=== PATIENT | male | born 1975 | race Caucasian/White ===

== ENCOUNTER 2019-02-04 22:33 | Observation (INO) ==
[2019-02-04] MEDS ORDERED: Ondansetron 4 MG/2 ML VIAL IVP ONE (23:15)
[2019-02-04] MEDS ORDERED: 0.9 % Sodium Chloride 1,000 ML IVC ONE (23:22)
--- NOTE | 2019-02-04 23:31 | Emergency Department Note ---
Disposition Clinical Impression: Abscess of skin or subcutaneous tissue Qualifiers: Site of cutaneous abscess: extremity Site of cutaneous abscess of extremity: hand Laterality: left Qualified Code(s): L02.512 - Cutaneous abscess of left hand Disposition: Still a Patient Condition: Good Referrals: NONE,PCP [Primary Care Provider] - Forms: ED Satisfaction Letter Time of Disposition: 01:11 Skin/Abscess/FB HPI Chief complaint: ED Skin/Abscess/Foreign Body Stated complaint: Abscess left hand Time Seen by Provider: 02/04/19 22:47 Source: patient, police Limitations: no limitations Nursing Notes Reviewed: Yes Vital Signs Reviewed: Yes HPI Narrative: 43 yo man brought to ED 02/04/19 for evaluation of abscess on dorsal aspect of left hand with nausea and vomiting x1 day. He said he feels feverish. Patient said he cut his right reddy on a metal saw 1 month ago, and then the abscess on his hand just went "poof" today. He denies CP, SOB, AMS, numbness, weakness, LOC. He said he is unable to eat or drink since this morning. Patient has been in custody at [facility] since 01/29/19 and denies substance abuse; however he was found with 3 needles in his possession upon arrest. Allergies Allergy/AdvReac Type Severity Reaction Status Date / Time codeine Allergy Hives Verified 02/04/19 23:18 Penicillins Allergy Hives Verified 02/04/19 23:18 All systems ED: reviewed and negative except as stated. Constitutional: Reports: fever Gastrointestinal: Reports: nausea, vomiting Integumentary: Reports: lesions Past Medical History - Past Medical History Attestation: Yes The following information was validated with the patient. Source: patient Medical history: Reports: non-contributory Psychiatric history: Reports: no psych history - Social History Smoking Status: Current every day smoker Smokeless Tobacco Status: No Alcohol use: Reports: occasionally Drug use: Reports: marijuana, IV Drug Use Physical Exam Gen: AOx3, appears ill HEENT: No lymphadenopathy, no erythema, no edema. Pupils equal and reactive. Poor dentition. Cardio: Regular rate and rhythm, no murmur, no peripheral edema, good perfusion to all extremities, no cyanosis Resp: Equal breath sounds bilaterally, no wheeze, no cough GI: +vomiting. Abdomen soft, nondistended, nontender to palpation. No ecchymose s, no rash. : No suprapubic tenderness or distention MSK: Two circular lesions with surrounding erythema, serous discharge tender to palpation on right reddy. Abscess with purulent exudate, erythema and edema on dorsum of left hand. No neurovascular compromise on exam. Otherwise normal ROM, no joint swelling or erythema Neuro: CNI-XII intact, strength and sensation WNL Psych: Agitated - General Limitations: no limitations General appearance: alert, in no apparent distress Course Course Narrative: VS stable. Pulse 95, afebrile on presentation. XR ordered to evaluate for foreign body within hand abscess; also CT hand w/ contrast. CBC, CMP, lactic acid, blood cultures ordered. Patient given Zofran, IVF. Started on antibiotics to cover MRSA, anaerobes, G+ and G- given extent of illness (vanc, clindamycin, metronidazole chosen due to penicillin allergy.) Vital Signs Temperature 98.6 F 02/04/19 22:34 Pulse Rate 95 02/04/19 22:34 Respiratory Rate 20 02/04/19 22:34 Blood Pressure 134/87 02/04/19 22:34 O2 Sat by Pulse Oximetry 100 02/04/19 22:34 Temperature 98.6 F 02/04/19 22:34 Pulse Rate 83 02/05/19 00:47 Respiratory Rate 18 02/05/19 00:47 Blood Pressure 117/77 02/05/19 00:47 O2 Sat by Pulse Oximetry 99 02/05/19 00:47 Oxygen Delivery Oxygen Delivery Room Air Skin/Abscess/Foreign Body - [facility] Narrative Medical decision making narrative: VS stable. Patient became diaphoretic during time in ED, appeared more ill. Plan to admit for medical management of abscess, cellulitis. CT hand pending at sign out. - Differential Diagnosis Likely: abscess of skin or subcutaneous tissue - Lab Data Result diagrams: 02/04/19 23:33 02/04/19 23:33 Lab Results 02/04/19 02/04/19 02/04/19 Range/Units 23:33 23:33 23:33 WBC 11.8 H (4.3-11.1) K/mcL RBC 5.15 (4.19-5.50) M/mcL Hgb 14.7 (12.9-16.9) g/dL Hct 42.6 (37.5-50.1) % MCV 82.7 L (83.0-100.0) fL MCH 28.5 (28.0-33.3) pg MCHC 34.5 (31.6-35.5) g/dL RDW 12.6 (11.5-14.5) % Plt Count 244 (140-400) K/mcL MPV 11.0 (9.4-12.4) fL Immature Gran % 0.3 (0-4) % Seg Neutrophils % 37.4 % Lymphocytes % 43.2 % Monocytes % 8.8 % Eosinophils % 9.7 % Basophils % 0.6 % Neutrophils # 4.4 (1.6-8.9) K/mcL Lymphocytes # 5.1 H (0.6-4.6) K/mcL Monocytes # 1.0 (0.0-1.3) K/mcL Eosinophils # 1.1 H (0.0-0.6) K/mcL Basophils # 0.1 (0.0-0.2) K/mcL Sodium 132 L (136-145) mEq/L Potassium 3.8 (3.5-5.1) mEq/L Chloride 101 (98-107) mEq/L Carbon Dioxide 24 (23-29) mEq/L BUN 21 H (6-20) mg/dL Creatinine 0.91 (0.70-1.30) mg/dL Est GFR ( Amer) > 60 (> 60) Est GFR (Non-Af Amer) > 60 (> 60) BUN/Creatinine Ratio 23 (6-26) Glucose 145 H (70-105) mg/dL Calculated Osmolality 280 (280-300) Lactic Acid 1.8 (0.5-2.2) mmol/L Calcium 8.7 (8.6-10.3) mg/dL Total Bilirubin 0.5 (0.3-1.0) mg/dL AST 28 (13-39) Units/L ALT 50 (7-52) Units/L Alkaline Phosphatase 75 (34-104) Units/L Serum Total Protein 7.2 (6.4-8.9) g/dL Albumin 3.9 (3.5-5.7) g/dL Globulin 3.3 (2.4-3.5) g/dL Albumin/Globulin Ratio 1.2 (1.1-2.2)
[2019-02-04] MEDS ORDERED: Vancomycin (wt based) 1,000 MG VIAL IV ONE (23:44)
[2019-02-04] MEDS ORDERED: Clindamycin 600 MG/50 ML 600 MG/50 ML IV.SOLN IVPB STA (23:45)
[2019-02-04] MEDS ORDERED: Isovue-370 500 ML BOTTLE IVP ONE (23:49)
[2019-02-04] MEDS ORDERED: MetroNIDAZOLE 500 MG/100 ML 500 MG/100 ML BAG IVPB ONE (23:52)
[2019-02-05 00:05] LABS: Alanine Aminotransferase 50 Units/L (7-52); Albumin 3.9 g/dL (3.5-5.7); Albumin/Globulin Ratio 1.2 (1.1-2.2); Alkaline Phosphatase 75 Units/L (34-104); Aspartate Amino Transferase 28 Units/L (13-39); BUN/Creatinine Ratio 23 (6-26); Bilirubin,Total 0.5 mg/dL (0.3-1.0); Blood Urea Nitrogen 21 mg/dL (6-20); Calcium 8.7 mg/dL (8.6-10.3); Carbon Dioxide 24 mEq/L (23-29); Chloride 101 mEq/L (98-107); Globulin 3.3 g/dL (2.4-3.5); Glucose 145 mg/dL (70-105); Osmolality,Calculated 280 (280-300); Potassium 3.8 mEq/L (3.5-5.1); Sodium 132 mEq/L (136-145); Total Protein 7.2 g/dL (6.4-8.9); eGFR For African Americans > 60 (> 60); eGFR For Non-African Americans > 60 (> 60)
[2019-02-05 00:35] LABS: Basophils # 0.1 K/mcL (0.0-0.2); Basophils % 0.6 %; Eosinophils # 1.1 K/mcL (0.0-0.6); Eosinophils % 9.7 %; Hematocrit 42.6 % (37.5-50.1); Hemoglobin 14.7 g/dL (12.9-16.9); Immature Granulocytes % 0.3 % (0-4); Lymphocytes # 5.1 K/mcL (0.6-4.6); Lymphocytes % 43.2 %; Mean Corpuscular HGB Conc 34.5 g/dL (31.6-35.5); Mean Corpuscular Hemoglobin 28.5 pg (28.0-33.3); Mean Corpuscular Volume 82.7 fL (83.0-100.0); Monocytes % 8.8 %; Neutrophils # 4.4 K/mcL (1.6-8.9); Platelet Count 244 K/mcL (140-400); Red Blood Count 5.15 M/mcL (4.19-5.50); Red Cell Distribution Width 12.6 % (11.5-14.5); Segmented Neutrophils % 37.4 %; White Blood Count 11.8 K/mcL (4.3-11.1)
--- NOTE | 2019-02-05 00:37 | Emergency Department Note ---
Disposition Clinical Impression: Abscess of skin or subcutaneous tissue Qualifiers: Site of cutaneous abscess: extremity Site of cutaneous abscess of extremity: hand Laterality: left Qualified Code(s): L02.512 - Cutaneous abscess of left hand Cellulitis Qualifiers: Site of cellulitis: extremity Site of cellulitis of extremity: upper extremity Laterality: left Qualified Code(s): L03.114 - Cellulitis of left upper limb Disposition: Admitted As Inpatient Condition: Good Time of Disposition: 01:11 General Adult HPI - General Chief complaint: ED Skin/Abscess/Foreign Body Stated complaint: Abscess left hand Time Seen by Provider: 02/04/19 22:47 Source: patient, police Limitations: no limitations - History of Present Illness Pain Scale: 10 - Related Data Previous Rx's Medication Instructions Recorded Acetaminophen [Tylenol] 650 mg PO Q4HR PRN #30 tablet 02/06/19 Doxycycline 100 mg PO BID #14 capsule 02/06/19 Tramadol HCl [Ultram] 50 mg PO TID PRN 5 Days #15 tab 02/06/19 Allergies Allergy/AdvReac Type Severity Reaction Status Date / Time codeine Allergy Hives Verified 02/04/19 23:18 Penicillins Allergy Hives Verified 02/04/19 23:18 Constitutional: Reports: fever Gastrointestinal: Reports: nausea, vomiting Integumentary: Reports: lesions Past Medical History - Past Medical History Medical history: Reports: non-contributory Psychiatric history: Reports: no psych history - Social History Smoking Status: Current every day smoker Smokeless Tobacco Status: No Alcohol use: Reports: occasionally Drug use: Reports: marijuana, IV Drug Use Physical Exam - General Limitations: no limitations General appearance: alert, in no apparent distress Course Vital Signs Temperature 98.6 F 02/04/19 22:34 Pulse Rate 95 02/04/19 22:34 Respiratory Rate 20 02/04/19 22:34 Blood Pressure 134/87 02/04/19 22:34 O2 Sat by Pulse Oximetry 100 02/04/19 22:34 Temperature 98.4 F 02/06/19 11:33 Pulse Rate 67 02/06/19 11:33 Respiratory Rate 19 02/06/19 11:33 Blood Pressure 115/77 02/06/19 11:33 O2 Sat by Pulse Oximetry 97 02/06/19 11:33 Oxygen Delivery Oxygen Delivery Room Air Medical Decision Making - Lab Data Result diagrams: 02/06/19 04:54 02/06/19 04:54 Lab Results 02/04/19 02/04/19 02/04/19 Range/Units 23:33 23:33 23:33 WBC 11.8 H (4.3-11.1) K/mcL RBC 5.15 (4.19-5.50) M/mcL Hgb 14.7 (12.9-16.9) g/dL Hct 42.6 (37.5-50.1) % MCV 82.7 L (83.0-100.0) fL MCH 28.5 (28.0-33.3) pg MCHC 34.5 (31.6-35.5) g/dL RDW 12.6 (11.5-14.5) % Plt Count 244 (140-400) K/mcL MPV 11.0 (9.4-12.4) fL Immature Gran % 0.3 (0-4) % Seg Neutrophils % 37.4 % Lymphocytes % 43.2 % Monocytes % 8.8 % Eosinophils % 9.7 % Basophils % 0.6 % Neutrophils # 4.4 (1.6-8.9) K/mcL Lymphocytes # 5.1 H (0.6-4.6) K/mcL Monocytes # 1.0 (0.0-1.3) K/mcL Eosinophils # 1.1 H (0.0-0.6) K/mcL Basophils # 0.1 (0.0-0.2) K/mcL Sodium 132 L (136-145) mEq/L Potassium 3.8 (3.5-5.1) mEq/L Chloride 101 (98-107) mEq/L Carbon Dioxide 24 (23-29) mEq/L BUN 21 H (6-20) mg/dL Creatinine 0.91 (0.70-1.30) mg/dL Est GFR ( Amer) > 60 (> 60) Est GFR (Non-Af Amer) > 60 (> 60) BUN/Creatinine Ratio 23 (6-26) Glucose 145 H (70-105) mg/dL Calculated Osmolality 280 (280-300) Lactic Acid 1.8 (0.5-2.2) mmol/L Calcium 8.7 (8.6-10.3) mg/dL Total Bilirubin 0.5 (0.3-1.0) mg/dL AST 28 (13-39) Units/L ALT 50 (7-52) Units/L Alkaline Phosphatase 75 (34-104) Units/L Serum Total Protein 7.2 (6.4-8.9) g/dL Albumin 3.9 (3.5-5.7) g/dL Globulin 3.3 (2.4-3.5) g/dL Albumin/Globulin Ratio 1.2 (1.1-2.2) Attestation Statement - Attestation Attestation: I examined this patient and my medical decision-making was reviewed with the Resident Physician. I agree with the documented findings, disposition and treatment plan as described except to the extent set forth below. Patient a 43-year-old gentleman presents to the emergency department with chief complaint of abscess to left hand Physical exam patient is diaphoretic has a draining abscess to the dorsal aspect of the left forearm the patient has a ulceration on his right lower extremity Medical decision management the patient will be evaluated for sepsis standpoint patient will be treated with IV antibiotics plan will be to admit the patient to the hospital
[2019-02-05] MEDS ORDERED: Ketorolac 30 MG/ML VIAL IVP ONE (03:25)
--- NOTE | 2019-02-05 05:40 | Internal Med History&Physical ---
<Leticia Hoang L - Last Filed: 02/05/19 07:17> Date of Encounter: 02/05/19 Time of Encounter: 05:30 Internal Medicine - H&P: HPI Chief complaint: Left hand abscess Admitted From: Home History of present illness: Mr. Leahy is a 43 year old male with past history of substance use, presents to the ED with c/o abscess on L wrist. Patient states about 1 month ago he was working and cut his right reddy on a piece of metal. Patient states that wound did not scar up until recently this past week. He was placed in custody last week and this Saturday afternoon he noticed the abscess on his wrist pop up. The abscess was there first then his hand began to swell later on in the day. Pain is an 8/10 and radiates up his arm to his elbow. He states on Saturday he also felt nausea and had 5 episodes of nonbloody non bilious emesis. He was seen by healthcare staff at the facility where they then gave him bactrim. Today he states he has had multiple episodes of non-bloody nonbilious emesis. He admits to headaches, dizziness, and blurry vision, since saturday. Denies chest pain, hematemesis, diarrhea, hematochezia, dysuria. Patient is currently being admitted for concerns for Left hand cellulitis with abscess. Past Med Surg Social Fam HX - Past Medical History Medical history: non-contributory Psychiatric history: no psych history - Past Surgical History Additional surgical history: bowel surgery - Social History Smoking Status: Current every day smoker Smokeless Tobacco Status: No Alcohol use: occasionally Drug use: marijuana, IV Drug Use - Family History Mother Hx Family Cardiac Disorders: Yes (htn) Hx Family Cancer: Yes Father Hx Family Cardiac Disorders: Yes Hx Family Cancer: Yes Internal Medicine - H&P: Meds No Known Home Drugs 02/05/19 [History] Allergy/AdvReac Type Severity Reaction Status Date / Time codeine Allergy Hives Verified 02/04/19 23:18 Penicillins Allergy Hives Verified 02/04/19 23:18 All Systems PM: A 10-system review of systems was performed and is negative for pertinent findings except as documented above in the HPI. Review of systems: Constitutional: Denies Fever, Chills, admits Headache, Dizziness Respiratory: Denies Shortness of breath, Chronic cough, hemoptysis, Dyspnea at rest, or activity Cardiovascular: Denies Chest pain, Syncope, Peripheral edema , palpitations Gastrointestinal: Denies hematochezia, admits Abdominal pain, nausea, vomiting Genitourinary: Denies Painful urination, hematuria, urinary retention Endocrine: denies unintentional Significant weight changes Skin: Denies rashes, or unexplained bruising - Constitutional Vitals: Temp Pulse Resp BP Pulse Ox 98.6 F 80 18 131/76 99 02/04/19 22:34 02/05/19 03:34 02/05/19 03:34 02/05/19 03:34 02/05/19 03:34 Exam: Gen: alert/oriented, no acute distress. Head: atraumatic, normocephalic. ENT: EOMI, MARYCHUY, no oropharyngeal erythema, mucous membranes moist, Neck: No thyromegaly appreciated. Neck supple no cervical lymphadenopathy. Resp: CTAB, no wheezing, rhonchi, or rhales. CV: RRR, Normal S1 and S2. No murmur, gallops, or rubs. GI/Abdominal exam: bowel sounds throughout, soft, non-tender, non- distended; no hepatosplenomegaly Skin: intact; no rashes, or bruising, lesion located on R anterior reddy with granular healing. Ext: R hand without cyanosis or edema. pulses +2/4 bilaterally UE and LE. Left hand edematous, erythematous and warm to palpation, abscess located on wrist 1/12 cm in diameter with pustular drainage. Capillary refill <2 secs UE and LE b/l. Neuro: no focal deficits, cooperative with exam. Internal Med - H&P Results - Labs CBC & Chem 7: 02/04/19 23:33 02/04/19 23:33 Labs: Short CBC 02/04/19 Range/Units 23:33 WBC 11.8 H (4.3-11.1) K/mcL Hgb 14.7 (12.9-16.9) g/dL Hct 42.6 (37.5-50.1) % Plt Count 244 (140-400) K/mcL Neutrophils # 4.4 (1.6-8.9) K/mcL BMP 02/04/19 23:33 Sodium 132 L Potassium 3.8 Chloride 101 Carbon Dioxide 24 BUN 21 H Creatinine 0.91 Glucose 145 H Calcium 8.7 Liver Function 02/04/19 Range/Units 23:33 Total Bilirubin 0.5 (0.3-1.0) mg/dL AST 28 (13-39) Units/L ALT 50 (7-52) Units/L Alkaline Phosphatase 75 (34-104) Units/L Albumin 3.9 (3.5-5.7) g/dL - Impressions ITS Impressions Hand X-Ray 02/04/19 23:20 IMPRESSION: No radiopaque foreign body in the area of clinical concern. Diffuse swelling greatest medially and posteriorly. D/ / Richard Cheung / Richard Cheung Interpreting Provider: Richard Cheung Hand CT 02/05/19 00:00 IMPRESSION: Peripherally enhancing collection in the dorsal soft tissues of the hand medially near the base of the 4th and 5th metacarpal suspicious of abscess versus tenosynovitis. Diffuse dorsal swelling. Cellulitis is favored. Linear radiopaque object at the level of the thumb CMC and thumb MCP joint, occult on radiography and in close association with the muscle and tendon. D/ / Richard Cheung / Richard Cheung Interpreting Provider: Richard Cheung - Assessment and Plan (1) Abscess of skin or subcutaneous tissue Current Visit: Yes Status: Acute Assessment and plan: Patient is a 43-year-old male with previous history of substance abuse last use of meth 10 days ago. Patient arrives due to complaint of left hand abscess. On arrival on arrival patient is afebrile although wound is edematous, jessica thematous, and warm to touch. Wound is 1-1/2 cm in diameter and has pustular drainage. Hand x-ray shows diffuse swelling, and CT shows cellulitis. Currently concern for cellulitis. Plan: - Consult to Orthopedics for Incision and drainage. - Continue Vancomycin IV, pharmacy to dose - NPO today for I&D - EKG today in prep for I&D - CBC and CMP in am - 1L of NS Qualifiers: Site of cutaneous abscess: extremity Site of cutaneous abscess of extremi ty: hand Laterality: left Qualified Code(s): L02.512 - Cutaneous abscess of left hand (2) DVT prophylaxis Current Visit: Yes Status: Acute Assessment and plan: SCDs - Time Spent With Patient Total time spent is greater than 50% in coordination of care (as documented) at patient's floor/unit and/or counseling patient: <Casa Antonio - Last Filed: 02/05/19 07:22> Date of Encounter: 02/05/19 Internal Medicine - H&P: HPI History of present illness: Mr. Leahy is a 43 year old male All Systems PM: A 10-system review of systems was performed and is negative for pertinent findings except as documented above in the HPI. - Constitutional Vitals: Temp Pulse Resp BP Pulse Ox 98.6 F 80 18 128/74 99 02/04/19 22:34 02/05/19 03:34 02/05/19 06:30 02/05/19 06:30 02/05/19 03:34 Internal Med - H&P Results - Labs CBC & Chem 7: 02/04/19 23:33 02/04/19 23:33 Labs: Short CBC 02/04/19 Range/Units 23:33 WBC 11.8 H (4.3-11.1) K/mcL Hgb 14.7 (12.9-16.9) g/dL Hct 42.6 (37.5-50.1) % Plt Count 244 (140-400) K/mcL Neutrophils # 4.4 (1.6-8.9) K/mcL BMP 02/04/19 23:33 Sodium 132 L Potassium 3.8 Chloride 101 Carbon Dioxide 24 BUN 21 H Creatinine 0.91 Glucose 145 H Calcium 8.7 Liver Function 02/04/19 Range/Units 23:33 Total Bilirubin 0.5 (0.3-1.0) mg/dL AST 28 (13-39) Units/L ALT 50 (7-52) Units/L Alkaline Phosphatase 75 (34-104) Units/L Albumin 3.9 (3.5-5.7) g/dL - Impressions ITS Impressions Hand X-Ray 02/04/19 23:20 IMPRESSION: No radiopaque foreign body in the area of clinical concern. Diffuse swelling greatest medially and posteriorly. D/ / Richard Cheung / Richard Cheung Interpreting Provider: Richard Cheung Hand CT 02/05/19 00:00 IMPRESSION: Peripherally enhancing collection in the dorsal soft tissues of the hand medially near the base of the 4th and 5th metacarpal suspicious of abscess versus tenosynovitis. Diffuse dorsal swelling. Cellulitis is favored. Linear radiopaque object at the level of the thumb CMC and thumb MCP joint, occult on radiography and in close association with the muscle and tendon. D/ / Richard Cheung / Richard Cheung Interpreting Provider: Richard Cheung - Time Spent With Patient Total time spent is greater than 50% in coordination of care (as documented) at patient's floor/unit and/or counseling patient: - Attending Attestation I saw and evaluated the patient. I reviewed the residents note, performed my own physical examination and agree with findings and plan as documented in the residents note. Patient seen and examined on 02/05/19. Patient presented from the local senior care with left wrist/hand cellulitis and abscess. He denies previous injury, denies using IV drugs in the area as well. Patient was started on antibiotics in the ER, will follow up with orthopedic surgery recommendations. Continue to monitor.
[2019-02-05] MEDS ORDERED: Naloxone 0.4 MG/ML INJ IVP PRN (05:49)
[2019-02-05] MEDS ORDERED: Acetaminophen 325 MG TABLET PO PRN (05:51)
--- NOTE | 2019-02-05 05:51 | Emergency Department Note ---
Disposition Clinical Impression: Abscess of skin or subcutaneous tissue Qualifiers: Site of cutaneous abscess: extremity Site of cutaneous abscess of extremity: hand Laterality: left Qualified Code(s): L02.512 - Cutaneous abscess of left hand Cellulitis Qualifiers: Site of cellulitis: extremity Site of cellulitis of extremity: upper extremity Laterality: left Qualified Code(s): L03.114 - Cellulitis of left upper limb Disposition: Admitted As Inpatient Condition: Good Time of Disposition: 05:31 Skin/Abscess/FB HPI Chief complaint: ED Skin/Abscess/Foreign Body Stated complaint: Abscess left hand Time Seen by Provider: 02/04/19 22:47 Source: patient, police Limitations: no limitations Nursing Notes Reviewed: Yes Vital Signs Reviewed: Yes Home Medications Medication Instructions Recorded Confirmed No Known Home Drugs 02/05/19 02/05/19 Allergies Allergy/AdvReac Type Severity Reaction Status Date / Time codeine Allergy Hives Verified 02/04/19 23:18 Penicillins Allergy Hives Verified 02/04/19 23:18 Constitutional: Reports: fever Gastrointestinal: Reports: nausea, vomiting Integumentary: Reports: lesions Past Medical History - Past Medical History Medical history: Reports: non-contributory Psychiatric history: Reports: no psych history - Social History Smoking Status: Current every day smoker Smokeless Tobacco Status: No Alcohol use: Reports: occasionally Drug use: Reports: marijuana, IV Drug Use Physical Exam - General Limitations: no limitations General appearance: alert, in no apparent distress Course Course Narrative: Patient CT scan did show an abscess on the right hand only ulnar aspect with associated cellulitis. Antibiotics had orally been given. I did review the chart. Blood cultures were added as well as a wound culture. Patient admitted to the hospitalist and a consult to Dr. Strange Pt is improved. Pt is feeling better and the wound has began to drain. Vital Signs Temperature 98.6 F 02/04/19 22:34 Pulse Rate 95 02/04/19 22:34 Respiratory Rate 20 02/04/19 22:34 Blood Pressure 134/87 02/04/19 22:34 O2 Sat by Pulse Oximetry 100 02/04/19 22:34 Temperature 98.6 F 02/04/19 22:34 Pulse Rate 80 02/05/19 03:34 Respiratory Rate 18 02/05/19 03:34 Blood Pressure 131/76 02/05/19 03:34 O2 Sat by Pulse Oximetry 99 02/05/19 03:34 Oxygen Delivery Oxygen Delivery Room Air Skin/Abscess/Foreign Body - Lab Data Result diagrams: 02/04/19 23:33 02/04/19 23:33 Lab Results 02/04/19 02/04/19 02/04/19 Range/Units 23:33 23:33 23:33 WBC 11.8 H (4.3-11.1) K/mcL RBC 5.15 (4.19-5.50) M/mcL Hgb 14.7 (12.9-16.9) g/dL Hct 42.6 (37.5-50.1) % MCV 82.7 L (83.0-100.0) fL MCH 28.5 (28.0-33.3) pg MCHC 34.5 (31.6-35.5) g/dL RDW 12.6 (11.5-14.5) % Plt Count 244 (140-400) K/mcL MPV 11.0 (9.4-12.4) fL Immature Gran % 0.3 (0-4) % Seg Neutrophils % 37.4 % Lymphocytes % 43.2 % Monocytes % 8.8 % Eosinophils % 9.7 % Basophils % 0.6 % Neutrophils # 4.4 (1.6-8.9) K/mcL Lymphocytes # 5.1 H (0.6-4.6) K/mcL Monocytes # 1.0 (0.0-1.3) K/mcL Eosinophils # 1.1 H (0.0-0.6) K/mcL Basophils # 0.1 (0.0-0.2) K/mcL Sodium 132 L (136-145) mEq/L Potassium 3.8 (3.5-5.1) mEq/L Chloride 101 (98-107) mEq/L Carbon Dioxide 24 (23-29) mEq/L BUN 21 H (6-20) mg/dL Creatinine 0.91 (0.70-1.30) mg/dL Est GFR ( Amer) > 60 (> 60) Est GFR (Non-Af Amer) > 60 (> 60) BUN/Creatinine Ratio 23 (6-26) Glucose 145 H (70-105) mg/dL Calculated Osmolality 280 (280-300) Lactic Acid 1.8 (0.5-2.2) mmol/L Calcium 8.7 (8.6-10.3) mg/dL Total Bilirubin 0.5 (0.3-1.0) mg/dL AST 28 (13-39) Units/L ALT 50 (7-52) Units/L Alkaline Phosphatase 75 (34-104) Units/L Serum Total Protein 7.2 (6.4-8.9) g/dL Albumin 3.9 (3.5-5.7) g/dL Globulin 3.3 (2.4-3.5) g/dL Albumin/Globulin Ratio 1.2 (1.1-2.2)
[2019-02-05 06:54] LABS: Amphetamine Screen,Urine Positive ng/mL (Cutoff=1000); Barbiturate Screen,Urine Negative ng/mL (Cutoff=200)
[2019-02-05 06:55] LABS: Benzodiazepines Screen,Urine Positive ng/mL (Cutoff=300); Cannabinoid Screen,Urine Positive ng/mL (Cutoff = 50); Cocaine Screen,Urine Negative ng/mL (Cutoff= 300); Opiate Screen,Urine Negative ng/mL (Cutoff=300); Phencyclidine Screen,Urine Negative ng/mL (Cutoff=25)
[2019-02-05] MEDS ORDERED: Clindamycin 600 MG/50 ML 600 MG/50 ML IV.SOLN IVPB SCH (08:00)
[2019-02-05] MEDS ORDERED: MetroNIDAZOLE 500 MG/100 ML 500 MG/100 ML BAG IVPB SCH ×2 (08:00→09:00)
[2019-02-05] MEDS ORDERED: Cefepime HCl 2,000 MG in Water for inj. (sterile) 20 ML IVP SCH (09:00)
[2019-02-05] MEDS: MetroNIDAZOLE 500 MG/100 ML 500 MG/100 ML BAG IVPB SCH ×2 (11:30→20:19)
--- NOTE | 2019-02-05 11:44 | Event Note ---
Date of Encounter: 02/05/19 Time of Encounter: 11:00 H&P reviewed. 43-year-old male with history of polysubstance abuse was admitted overnight due to left hand abscess on the dorsum. CT showed, in addition to the abscess, concerning findings that may be suggestive of tenosynovitis. Started on broad-spectrum antibiotics and awaiting for orthopedic evaluation for possible I&D. Keep nothing by mouth for now.
--- NOTE | 2019-02-05 13:10 | Orthopedic Consult Note ---
Date of Encounter: 02/05/19 Time of Encounter: 12:00 Assessment and Plan (1) Abscess of skin or subcutaneous tissue Current Visit: Yes Status: Acute left hand abscess is already open and actively draining and no significant palpable fluctuance noted around the wound. Patient has already seen significant improvement in motion and swelling overnight with IV abx. Reviewed xray and CT of hand and discussed case with Dr. Mortensen. Not recommended for surgical intervention at this time. The linear radiopaque object seen on CT is not near the source of infection and does not appear to be related to the wound. Continue IV abx per primary team likely at least another night with recommendation to switch to PO abx when he is ready for discharge. Pain control per primary team. Begin local wound care cleansing wound with soap/water TID and recover with dry gauze dressings. Keep left hand elevated. Work on motion as tolerated. Will continue to monitor for any worsening of symptoms that would change plan of care. Qualifiers: Site of cutaneous abscess: extremity Site of cutaneous abscess of extremity: hand Laterality: left Qualified Code(s): L02.512 - Cutaneous abscess of left hand History of Present Illness Chief complaint: left hand abscess HPI: Mr. Leahy is a 43 year old male who was brought to [facility] last night from [facility] for left hand pain and swelling. Per patient the only recent injury he has had was about 1 month ago he cut his right reddy on a piece of metal that wasnt healing. Denies any injury to hand. He has been in retirement since 01/29 and [facility] they started him on bactrim roughly 4 days ago for the right reddy wound/infection. He denies any red streaking or drainage from the right reddy wound. He states 2 days ago the left hand started swelling and formed a bump but denies it looking like white head. He states he squeezed on it yesterday and forced it open to drain. States drainage was black/luna and thick. He feels that today his motion is much better as the swelling has improved. Pain described as constant throbbing starting from wrist and radiating to elbow. Nothing makes it feel better or worse. He states he has some numbness in forearm but none in hand. Has had some nausea/vomiting yesterday but much better today. Denies any other symptoms at this time including no fevers, chest pain or SOB. Admits to h/o IVDA states last use was "months ago". States he always injects into right arm and has never injected into the left hand. Past Med Surg Social Fam HX - Past Medical History Medical history: non-contributory Psychiatric history: no psych history - Past Surgical History Additional surgical history: bowel surgery - Social History Smoking Status: Current every day smoker Packs per day: 1/2 Smokeless Tobacco Status: No Alcohol use: occasionally Drug use: marijuana, IV Drug Use - Family History Mother Hx Family Cardiac Disorders: Yes (htn) Hx Family Cancer: Yes Father Hx Family Cardiac Disorders: Yes Hx Family Cancer: Yes Medications and Allergies No Known Home Drugs 02/05/19 [History] Allergy/AdvReac Type Severity Reaction Status Date / Time codeine Allergy Hives Verified 02/04/19 23:18 Penicillins Allergy Hives Verified 02/04/19 23:18 All Systems Reviewed: The remainder of the systems were reviewed and are negative - Constitutional Constitutional: as per HPI - Cardiovascular Cardiovascular: as per HPI - Respiratory Respiratory: as per HPI - Musculoskeletal Musculoskeletal: as per HPI Physical Exam - Constitutional Vitals: Temp Pulse Resp BP Pulse Ox 98.5 F 61 19 100/63 99 02/05/19 11:10 02/05/19 11:10 02/05/19 11:10 02/05/19 11:10 02/05/19 11:10 - Wrist & Hand left Location of pain: dorsal wrist (there is an open wound roughly 4mm wide with minimal surrounding erythema, mild swelling to dorsal hand. no streaking up arm.active purulent drainage with palpation around the wound directly. no palpable fluctuance noted. mild tenderness to palpation of dorsal hand, no tenderness to palpation of palm or fingers. full ROM of fingers and hand, able to make full tight fist motion. mild limitation to full wrist flexion and extension at extremes, sensation intact distally, NV intact brisk cap refill.) Results - Labs Result Diagrams: 02/04/19 23:33 02/04/19 23:33 Labs: Abnormal lab results WBC 11.8 K/mcL (4.3-11.1) H 02/04/19 23:33 MCV 82.7 fL (83.0-100.0) L 02/04/19 23:33 Lymphocytes # 5.1 K/mcL (0.6-4.6) H 02/04/19 23:33 Eosinophils # 1.1 K/mcL (0.0-0.6) H 02/04/19 23:33 Sodium 132 mEq/L (136-145) L 02/04/19 23:33 BUN 21 mg/dL (6-20) H 02/04/19 23:33 Glucose 145 mg/dL (70-105) H 02/04/19 23:33 POC Glucose 128 mg/dL (70-99) H 02/05/19 11:41 Ur Buprenorphine Scrn Positive ng/mL (Cutoff=5) H 02/05/19 06:27 Ur Amphetamines Screen Positive ng/mL (Wbpvrb=[id number]) H 02/05/19 06:27 U Benzodiazepines Scrn Positive ng/mL (Qyibmp=818) H 02/05/19 06:27 U Marijuana (THC) Screen Positive ng/mL (Cutoff = 50) H 02/05/19 06:27 H & H 02/04/19 Range/Units 23:33 Hgb 14.7 (12.9-16.9) g/dL Hct 42.6 (37.5-50.1) % All other labs normal. - Diagnostic results Wrist/Hand x-ray: report reviewed, image reviewed Wrist/Hand CT: report reviewed, image reviewed Consult Discharge Plan - Plan Referrals: NONE,PCP [Primary Care Provider] - - Attending Attestation Case and plan of care discussed with supervising physician, Dr. Mortensen, who was available for all aspects of care.
--- NOTE | 2019-02-05 16:21 | Electrocardiograph Report ---
[address] [address] Test Date: 2019-02-05 Pat Name: Robson Leahy Department: 114 Room: [facility] Gender: M [place]ter: : 1975 Requested By: [id number] Order Number: [id number] Reading MD: Jony Lala Measurements Intervals [place] Rate: 56 P: 44 MI: 146 QRS: 42 QRSD: 92 T: 62 QT: 411 QTc: 401 Interpretive Statements SINUS BRADYCARDIA Electronically Signed On 02-05-2019 16:19:48 EDT by Jony Lala
[2019-02-05] MEDS: Ketorolac 30 MG/ML VIAL IVP PRN (16:25)
[2019-02-05] MEDS ORDERED: traMADol 50 MG TABLET PO PRN (17:44)
[2019-02-05] MEDS: Cefepime HCl 2,000 MG in Water for inj. (sterile) 20 ML IVP SCH (22:15)
[2019-02-06] MEDS: MetroNIDAZOLE 500 MG/100 ML 500 MG/100 ML BAG IVPB SCH ×2 (03:22→11:34)
[2019-02-06 05:32] LABS: Alanine Aminotransferase 50 Units/L (7-52); Albumin 3.2 g/dL (3.5-5.7); Albumin/Globulin Ratio 1.2 (1.1-2.2); Alkaline Phosphatase 72 Units/L (34-104); Aspartate Amino Transferase 36 Units/L (13-39); BUN/Creatinine Ratio 27 (6-26); Basophils # 0.1 K/mcL (0.0-0.2); Basophils % 0.7 %; Bilirubin,Total 0.4 mg/dL (0.3-1.0); Blood Urea Nitrogen 26 mg/dL (6-20); Calcium 8.2 mg/dL (8.6-10.3); Carbon Dioxide 26 mEq/L (23-29); Chloride 107 mEq/L (98-107); Eosinophils # 0.8 K/mcL (0.0-0.6); Globulin 2.7 g/dL (2.4-3.5); Glucose 107 mg/dL (70-105); Hemoglobin 13.4 g/dL (12.9-16.9); Immature Granulocytes % 0.3 % (0-4); Lymphocytes % 42.5 %; Mean Corpuscular HGB Conc 33.5 g/dL (31.6-35.5); Mean Corpuscular Hemoglobin 28.7 pg (28.0-33.3); Mean Corpuscular Volume 85.7 fL (83.0-100.0); Mean Platelet Volume 11.1 fL (9.4-12.4); Monocytes # 0.7 K/mcL (0.0-1.3); Monocytes % 9.5 %; Neutrophils # 2.5 K/mcL (1.6-8.9); Osmolality,Calculated 291 (280-300); Platelet Count 168 K/mcL (140-400); Potassium 4.5 mEq/L (3.5-5.1); Red Blood Count 4.67 M/mcL (4.19-5.50); Red Cell Distribution Width 12.9 % (11.5-14.5); Sodium 138 mEq/L (136-145); Total Protein 5.9 g/dL (6.4-8.9); White Blood Count 7.1 K/mcL (4.3-11.1); eGFR For African Americans > 60 (> 60); eGFR For Non-African Americans > 60 (> 60)
--- NOTE | 2019-02-06 08:59 | Discharge Summary ---
- NOTES TO OUTPATIENT PROVIDER Notes to Outpatient Provider: Follow-up with orthopedics as outpatient Orders not resulted at time of discharge: Pending orders 02/05/19 04:40 Culture,Blood [BC] Stat 02/05/19 04:50 Culture,Wound,with Gram Stain [RM] Stat Date of Encounter: 02/06/19 Time of Encounter: 07:30 - Discharge Diagnosis (1) Abscess of skin or subcutaneous tissue Priority: Primary Status: Acute Qualifiers: Site of cutaneous abscess: extremity Site of cutaneous abscess of extremity: hand Laterality: left Qualified Code(s): L02.512 - Cutaneous abscess of left hand (2) Polysubstance abuse Priority: Secondary Status: Acute (3) DVT prophylaxis Priority: Secondary Status: Acute Hospital course: Mr. Leahy is a 43 year old male with history of polysubstance abuse who was admitted due to left hand abscess on the dorsum. CT showed, in addition to the abscess, concerning findings that may be suggestive of tenosynovitis. Managed in consultation with Orthopedics who deemed that pt did not require any intervention (since it was draining spontaneously) and recommended to transition to oral antibiotics after 2 days of IV. He will be discharged home on 7 day course of doxycycline and to begin local wound care cleansing wound with soap/water TID and recover with dry gauze dressings per orthopedics. Discharge discussed with: patient, nurse - Time Spent with Patient Total time spent providing and/or coordinating discharge services: 26 mins - Discharge Medications Prescriptions: New Acetaminophen [Tylenol] 650 mg PO Q4HR PRN #30 tablet PRN Reason: Pain Tramadol HCl [Ultram] 50 mg PO TID PRN 5 Days #15 tab PRN Reason: Breakthrough Pain Doxycycline 100 mg PO BID #14 capsule Home Medications: Acetaminophen [Tylenol] 650 mg PO Q4HR PRN #30 tablet 02/06/19 [Rx] Doxycycline 100 mg PO BID #14 capsule 02/06/19 [Rx] Tramadol HCl [Ultram] 50 mg PO TID PRN 5 Days #15 tab 02/06/19 [Rx] Allergies/Adverse Reactions: Allergy/AdvReac Type Severity Reaction Status Date / Time codeine Allergy Hives Verified 02/04/19 23:18 Penicillins Allergy Hives Verified 02/04/19 23:18 Date of admission: 02/05/19 05:54 Primary care physician: PCP NONE Consults: 02/05/19 04:26 Consult to Physician [CONS] Stat Consulting Provider: Armond Strange Reason for Consult: L. Hand Abscess w/ drainage, Cellulitis Time Notified: 04:24 Call Completed: Yes 02/05/19 06:46 Consult to Pastoral Services [CONS] Routine Comment: - Constitutional Vitals: Temp Pulse Resp BP Pulse Ox 97.8 F 70 15 108/70 96 02/06/19 06:55 02/06/19 06:55 02/06/19 06:55 02/06/19 06:55 02/06/19 06:55 Exam: General: Alert and oriented, not in acute distress. Cardiovascular:Normal S1 & S2, No JVD. Pulse regular. Lungs: clear to auscultation, no wheezes/rales Abdomen:Soft, non-tender, no rigidity. Extremities: L dorsal wrist dressing c/d/i, mild swelling of the hand but no palpable fluctuance. Neurovascularly intact distally Neurological:Normal cognition and motor skills. Non-focal - Patient Status Disposition: Home, Self-Care Condition: Good Overall status at discharge: patient is progressing back to baseline - Discharge Instructions Follow Up With: NONE,PCP [Primary Care Provider] - Jesus Mortensen MD [Partnered Physician] - - Diet and Activity Activity: resume usual activities as tolerated Diet: regular diet
[2019-02-06] MEDS: Ketorolac 30 MG/ML VIAL IVP PRN (09:00)
[2019-02-06] MEDS: Cefepime HCl 2,000 MG in Water for inj. (sterile) 20 ML IVP SCH (09:00)
[2019-02-06 11:34] VITALS: BP 115/77
--- NOTE | 2019-02-06 14:08 | Orthopedics Progress Note ---
Date of Encounter: 02/06/19 Time of Encounter: 12:15 - Assessment and Plan (1) Abscess of skin or subcutaneous tissue Current Visit: Yes Status: Acute Continue local wound care washing wound with soap/water TID and recover with dry gauze dressings. Continue motion as tolerated. Ice and elevate as needed. Transition to PO abx upon discharge per primary team. Follow up with [facility] in [place] in 1 week for wound check. Qualifiers: Site of cutaneous abscess: extremity Site of cutaneous abscess of extremity: hand Laterality: left Qualified Code(s): L02.512 - Cutaneous abscess of left hand Subjective Principal diagnosis: left wrist abscess Interval history: Patient doing well today with no concerns. He states pain is much better and has better ROM of hand. States wound does continue to drain overnight. Objective Vital signs: Vital Signs Temp Pulse Resp BP Pulse Ox 02/06/19 11:33 98.4 F 67 19 115/77 97 02/06/19 06:55 97.8 F 70 15 108/70 96 02/06/19 03:34 98.5 F 02/06/19 03:33 99.6 F 81 20 108/71 96 02/05/19 22:53 98.2 F 100 16 118/76 97 02/05/19 19:30 98.0 F 67 16 108/68 97 02/05/19 16:14 98.6 F 80 16 111/69 99 Intake and Output 02/05/19 02/06/19 02/06/19 23:59 07:59 15:59 Intake Total 520 / 2040 350 / 1050 700 / 1050 Balance 520 / 2040 350 / 1050 700 / 1050 Intake: IV Fluids 370 / 1890 350 / 450 100 / 450 Maxipime 2,000 MG In Water for inj. (sterile) 20 ML @ 300 mls/ hr IVP BID MAUREEN Rx#:[id number] Flagyl Premix 500 MG/100 ML 500 100 / 200 100 / 200 100 / 200 mg In 100 ml @ 100 mls/hr IVPB Q8H MAUREEN Rx#:[id number] Vancocin 1,000 MG In 0.9 % 250 / 250 250 / 250 Sodium Chloride 250 ML @ 167 mls/hr IVPB Q12H MAUREEN Rx#: [id number] Oral 150 / 150 0 / 600 600 / 600 Other: Meal Lunch Percent of Meal Consumed 100% # Voids 1 1 Weight 76.13 kg Patient Weight 02/06/19 23:59 Weight 76.13 kg Incision: draining (wound on dorsal wrist still open with some continued active drainage but signficantly less than yesterday. minimal surrounding erythema, minimal swelling. full hand and wrist ROM, able to make full fist. sensation intact distally, brisk cap refill.) - Labs CBC & BMP: 02/06/19 04:54 02/06/19 04:54 Labs: Abnormal lab results WBC 11.8 K/mcL (4.3-11.1) H 02/04/19 23:33 MCV 82.7 fL (83.0-100.0) L 02/04/19 23:33 Lymphocytes # 5.1 K/mcL (0.6-4.6) H 02/04/19 23:33 Eosinophils # 0.8 K/mcL (0.0-0.6) H 02/06/19 04:54 Sodium 132 mEq/L (136-145) L 02/04/19 23:33 BUN 26 mg/dL (6-20) H 02/06/19 04:54 BUN/Creatinine Ratio 27 (6-26) H 02/06/19 04:54 Glucose 107 mg/dL (70-105) H 02/06/19 04:54 POC Glucose 128 mg/dL (70-99) H 02/05/19 11:41 Calcium 8.2 mg/dL (8.6-10.3) L 02/06/19 04:54 Serum Total Protein 5.9 g/dL (6.4-8.9) L 02/06/19 04:54 Albumin 3.2 g/dL (3.5-5.7) L 02/06/19 04:54 Ur Buprenorphine Scrn Positive ng/mL (Cutoff=5) H 02/05/19 06:27 Ur Amphetamines Screen Positive ng/mL (Ikobfc=[id number]) H 02/05/19 06:27 U Benzodiazepines Scrn Positive ng/mL (Idxdpk=469) H 02/05/19 06:27 U Marijuana (THC) Screen Positive ng/mL (Cutoff = 50) H 02/05/19 06:27 Consult Discharge Plan - Plan Additional Instructions: clean wound with soap/water three times a day and re-dress with dry gauze. Referrals: aLst Palma DO [Partnered Physician] - 02/12/19 3:00 pm Prescriptions: Doxycycline 100 mg PO BID #14 capsule Acetaminophen [Tylenol] 650 mg PO Q4HR PRN #30 tablet PRN Reason: Pain Tramadol HCl [Ultram] 50 mg PO TID PRN 5 Days #15 tab PRN Reason: Breakthrough Pain
[2019-02-06] MEDS ORDERED: Aminoglycoside Consult 1 EACH MC ONE (14:54)
== END 2019-02-06 14:55 | disposition home or self-care (01) ==
LOC: 3NENU 22:33 → EMEROOARM 22:33 → SUATTDRO 02-05 05:54 → 3NENU 02-05 06:30
PROVIDERS: ADMIT Internal Medicine; ATTEND Internal Medicine